=== PATIENT | female | born 1980 | race Caucasian/White ===

== ENCOUNTER 2025-01-20 13:47 | Outpatient (AMB) | payer OTHER, SELFPAY ==
--- NOTE | 2025-01-20 14:05 | A.OFFPC_ITS ---
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 Allergies Seasonal Allergies Allergy (Verified 01/20/25 14:07) Runny nose, watery eyes, sinus issues Tobacco use date assessed: 01/20/25 Dental Screening Dental Screen Date: 01/20/25 Did you have a dental visit in the last 12 months?: Yes Did you have a dental problem in the last 6 months where you did not have access to dental care?: No Was dental information given to patient?: Patient has dentist HPI HPI Comments History of Present Illness Details This is a 44-year-old female with a past medical history of hepatic steatosis, prediabetes, obesity, sciatica, insomnia and seasonal allergies presenting to establish care. Patient reports having a physical exam less than a year ago and last labs approximately 1 year ago. Transfer records pending. Sciatica-prescribed gabapentin 400 mg at night. This helps her to sleep and remain comfortable. She also takes melatonin 3 mg nightly for insomnia. Upon further questioning she endorses being told that she snores every night, non restorative sleep, daytime somnolence and waking up in the morning with headache sometimes. She goes to bed around 9:30-10 p.m. and wakes up at 05:30 a.m. on the week days and on the weekend 08:30am. She only drinks alcohol occasionally. She does not require medications to treat allergy symptoms that she says are seasonal. No frequent sinus infections. She has never had a sleep study. Her BMI is 45.6 kg/m2. She reports that she was diagnosed with hepatic steatosis, but when I questioned about this further she said this was only because her liver function tests were elevated on her blood work. She has never had a liver ultrasound. She denies abdominal pain, nausea, vomiting, jaundice or unexplained weight loss. She believes she was screened for hepatitis. Prediabetes-unknown last hemoglobin A1c. Denies symptoms of hyperglycemia. Patient is turning 45 years old in March. Her paternal grandmother had colon cancer, but she adamantly declines colonoscopy. She will do Cologuard though she is aware this is not the recommended screening test given her family history. She denies blood in her stools, abdominal pain, diarrhea or any other stool changes. She needs to be referred to Gynecology for an annual exam. She is overdue. She had a mammogram done last year, and she was contacted to schedule the mammogram this year. She reports having a breast biopsy in 2023 which was benign. Patient has felt like she has had some fluid in her right ear intermittently over the past few months. No hearing loss or pain. No dizziness or headache. Patient says she is up-to-date with immunizations. ROS: Constitutional: No unexplained weight loss, fever, chills or night sweats. +fatigue and daytime somnolence. Eyes: No vision changes, blurry vision, double vision, eye pain, eye redness, eye discharge. ENT: No hearing loss, ear pain, sore throat, sinus pain. Respiratory: No shortness of breath, cough or sputum production. Cardiovascular: No chest pain, chest pressure or chest discomfort. No palpitations or pedal edema. Gastrointestinal: No anorexia, nausea, vomiting or diarrhea. No abdominal pain or blood in stool. Neurologic: No headache, dizziness, syncope, unilateral weakness, ataxia seizures or tremors Hematologic/Lymphatics: No bleeding or bruising. Skin: No rash Endocrine: No cold or heat intolerance. No polyuria or polydipsia. Psychiatric: No depression or anxiety. No SI/HI. Physical exam: Constitutional: Alert, in no distress. Head: Normocephalic. Eyes: Pupils are equal, round and reactive to light. Extraocular muscles intact. Ear, Nose and Throat: Canals clear. TMs normal. Normal nasal mucosa. No nasal discharge. No oral lesions. Neck: Supple, Full range of motion. No lymphadenopathy. No palpable thyroid mas ses. Respiratory: Clear to auscultation. Cardiovascular: S1 S2 regular. No murmurs. Gastrointestinal: Abdomen soft, non-tender, non-distended. Normal bowel sounds. No palpable masses. Neurologic: No focal neurological deficits. Symmetric patellar reflexes. Moves all extremities spontaneously. Sensation intact bilaterally. Skin: No rashes Musculoskeletal: No gross deformities. Normal range of motion. Extremities: Warm and well perfused. No clubbing, cyanosis or edema. Intact peripheral pulses. Psychiatric: Normal mood and affect [facility] Medical History (Updated 01/21/25 @ 12:11 by ALNA Garrido) Daytime somnolence Non-restorative sleep Snoring Sciatica Seasonal allergies Obesity, Class III, BMI 40-49.9 (morbid obesity) Elevated LFTs Screening for cardiovascular condition Prediabetes Surgical History (Updated 01/21/25 @ 12:11 by ALAN Garrido) History of right breast biopsy Family History (Updated 01/20/25 @ 14:18 by Courtney Lira MA) Mother Stroke Heart attack Diabetes Blood clots in brain Father Diabetes Bipolar 1 disorder Kidney disease Kidney failure Social History (Updated 01/20/25 @ 14:12 by Courtney Lira MA) Housing: Apartment Housing Other:: with her fiance. 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 1. Little interest or pleasure in doing things: not at all 2. Feeling down, depressed, or hopeless: not at all 3. Trouble falling or staying asleep, or sleeping too much: not at all 4. Feeling tired or having little energy: nearly every day 5. Poor appetite or overeating: not at all 6. Feeling bad about yourself - or that you are a failure or have let yourself or your family down: not at all 7. Trouble concentrating on things, such as reading the newspaper or watching television: not at all 8. Moving or speaking so slowly that other people could have noticed. Or the opposite - being so fidgety or restless that you have been moving around a lot m ore than usual: not at all 9. Thoughts that you would be better off or of hurting yourself in some way: not at all Total score: 3 Depression Screening Interpretation: Negative Depression Screening Done: Yes 24701 - PHQ-9 Billing: Patient declined-do not bill Source: Developed by Drs. Christian Hi, Cher Jacobs, Homer Allen and colleagues, with an educational patti from [employer]. Thrive Questionnaire Date Thrive assessed: 01/20/25 I am a: Patient What is your living situation today?: I have a steady place to live Within the past 12 months, did the food you bought not last and you didn't have the money to get more?: Never true Within the past 12 months, did you worry whether your food would run out before you got money to buy more?: Never true Do you have trouble paying for medicines?: No Do you have trouble getting transportation to medical appointments?: No Do you have trouble paying your heating and electricity bill?: No Do you have trouble taking care of your child, family member or friend?: No Do you have trouble with day-to-day activities such as bathing, preparing meals, shopping, managing finances, etc.?: No Are you currently unemployed and looking for a job?: No Are you interested in more education?: No Please select the resources that you would like help with: None Currently or been in a relationship where the following occur: I choose not to answer THRIVE Score: 0 AUDIT C Alcohol Use Questionnaire (AUDIT-C) 1. How often do you have a drink containing alcohol?: Monthly or less 2. How many drinks containing alcohol do you have on a typical day when you are drinking?: 1 or 2 3. How often do you have six or more drinks on one occasion?: Never Total Score: 1 SCOTTIE-7 AMB Questionnaire SCOTTIE-7 Date SCOTTIE - 7 assessed: 01/20/25 Feeling nervous, anxious, or on edge: 0 = Not at all Not being able to stop or control worryin = Not at all Worrying too much about different things: 3 = Nearly every day Trouble relaxin = Not at all Being so restless that it is hard to sit still: 0 = Not at all Becoming easily annoyed or irritable: 3 = Nearly every day Feeling afraid as if something awful might happen: 0 = Not at all Total SCOTTIE-7 score (0-4 normal; 5-9 mild; 10-14 moderate; 15-21 severe): 6 Source: Developed by Drs. Christian Hi, Cher Jacobs, Homer Allen and colleagues, with an educational patti from [employer]. SCOTTIE-7 Assessment Billing SCOTTIE-7 Assessment Tool: SCOTTIE-7 Assessment 58569 ACT Questionnaire In the past 4 weeks, how much of the time did your asthma keep you from getting as much done at work, school or at home?: None of the time Score: 5 Physical exam (Primary Care) Vital Signs: Last Vital Signs Temp 98.6 F 01/20/25 14:13 Pulse 108 H 01/20/25 14:48 BP 118/88 01/20/25 14:13 Pulse Ox 98 01/20/25 14:13 Oxygen Delivery Method Room Air 01/20/25 14:13 BMI result Body Mass Index 45.6 Tobacco/Smoking Status: Tobacco use Status Tobacco use date assessed 01/20/25 01/20/25 14:19 Patient Tobacco Use Status Current everyday Tobacco 01/20/25 14:19 e-Cigarette/Vaping Use Never Used 01/20/25 14:19 PHQ-9: PHQ-9 Score PHQ-9: Total score 3 01/20/25 14:32 Depression Screening Interpretation: Negative Thrive Assessment: Date of Thrive Assessment Date Thrive assessed 01/20/25 01/20/25 14:19 Currently or been in a relationship where the following occur: I choose not to answer Coding Level of Care Code New Pt Level 4 (39653) Complex EM visit Add On G2211 Diagnoses Prediabetes R73.03 Screening for cardiovascular condition Z13.6 Elevated LFTs R79.89 Obesity, Class III, BMI 40-49.9 (morbid obesity) E66.01 Seasonal allergies J30.2 Sciatica M54.30 Snoring R06.83 Non-restorative sleep G47.8 Daytime somnolence R40.0 Additional Codes SCOTTIE-7 Assessment Billing - SCOTTIE-7 Assessment Tool: SCOTTIE-7 Assessment 37518 ([id number]) Assessment & Plan Assessment & Plan (1) Prediabetes: Code(s): R73.03 - Prediabetes Category: Medical Plan: Recommended low carbohydrate coat low sugar diet. Avoid alcohol. Exercise regularly to promote a healthy weight. Patient says generally she does not like to take medications so she is not interested in medications for prediabetes. Check labs. (2) Screening for cardiovascular condition: Code(s): Z13.6 - Encounter for screening for cardiovascular disorders Category: Medical (3) Elevated LFTs: Code(s): R79.89 - Other specified abnormal findings of blood chemistry Category: Medical Plan: Check liver function tests, lipid panel, ultrasound with elastography. Check hepatitis A,B and C serology. (4) Obesity, Class III, BMI 40-49.9 (morbid obesity): Code(s): E66.01 - Morbid (severe) obesity due to excess calories Category: Medical Plan: Patient is not interested in medical intervention. Lifestyle modifications reviewed in detail with the patient. Check TSH. (5) Seasonal allergies: Code(s): J30.2 - Other seasonal allergic rhinitis Category: Medical Plan: Patient does not take medications for this. Reassurance provided that there is no evidence of tympanic membrane effusion or infection on exam today. She may have some eustachian tube dysfunction and allergies contributing to the feeling of fluid in her ear. Recommended supportive care. (6) Sciatica: Code(s): M54.30 - Sciatica, unspecified side Category: Medical Plan: Stable. Continue gabapentin 400 mg at bedtime. (7) Snoring: Code(s): R06.83 - Snoring Category: Medical Plan: Patient with BMI of 45.6, snoring, non restorative sleep, daytime somnolence. Sleep study is medically necessary. Ordered. (8) Non-restorative sleep: Code(s): G47.8 - Other sleep disorders Category: Medical (9) Daytime somnolence: Code(s): R40.0 - Somnolence Category: Medical Plan Follow up in 1 year for annual physical exam. Orders: Orders Comprehensive Met. Panel 01/20/25 R73.03 - Prediabetes, R79.89 - Other specified abnormal findings of blood chemistry, Z13.6 - Encounter for screening for cardiovascular disorders Hemoglobin A1c 01/20/25 E11.9 - Type 2 diabetes mellitus without complications, R73.03 - Prediabetes, R79.89 - Other specified abnormal findings of blood chemistry, Z13.6 - Encounter for screening for cardiovascular disorders TSH reflex Free T4 01/20/25 R73.03 - Prediabetes, R79.89 - Other specified abnormal findings of blood chemistry, Z13.6 - Encounter for screening for cardiovascular disorders Hepatitis A IgM Today R79.89 - Other specified abnormal findings of blood chemistry RT home sleep study Today E66.01 - Morbid (severe) obesity due to excess calories, G47.8 - Other sleep disorders, R06.83 - Snoring, R40.0 - Somnolence Complete Blood Count no Diff 01/20/25 R73.03 - Prediabetes, R79.89 - Other specified abnormal findings of blood chemistry, Z13.6 - Encounter for screening for cardiovascular disorders Lipid Panel 01/20/25 E78.5 - Hyperlipidemia, unspecified, R73.03 - Prediabetes, R79.89 - Other specified abnormal findings of blood chemistry, Z13.6 - Encounter for screening for cardiovascular disorders US abdomen doty w elastography 01/20/25 R73.03 - Prediabetes, R79.89 - Other specified abnormal findings of blood chemistry, Z13.6 - Encounter for screening for cardiovascular disorders Hepatitis A,B,C Profile Today R7.89 - Other specified abnormal findings of blood chemistry Referrals ELEMENT SETTER Referral Z01.419 - Encounter for gynecological examination (general) (routine) without abnormal findings Cologuard Test Z12.11 - Encounter for screening for malignant neoplasm of colon
[2025-01-20 14:13] VITALS: BP 118/88; PULSE 112; TEMP 37; O2SAT 98; BMI 45.6
[2025-01-20 14:48] VITALS: PULSE 108
== END 2025-01-20 14:51 | disposition home or self-care (01) ==
LOC: HO.HMCFM 13:48
PROVIDERS: PCP Physician Assistant Medical; Visit Provider Physician Assistant Medical
DX: R73.03 Prediabetes (principal); Z13.6 Encounter for screening for cardiovascular disorders; E66.01 Morbid (severe) obesity due to excess calories; Z68.42 Body mass index [BMI] 45.0-49.9, adult; R79.89 Other specified abnormal findings of blood chemistry; J30.2 Other seasonal allergic rhinitis; M54.30 Sciatica, unspecified side; R06.83 Snoring; G47.8 Other sleep disorders; R40.0 Somnolence

== ENCOUNTER → 2025-01-20 13:47 | Outpatient (BNVA) | payer OTHER, SELFPAY | PROVIDERS: PCP Physician Assistant Medical; Visit Provider Physician Assistant Medical | DX: R73.03 Prediabetes (principal); R79.89 Other specified abnormal findings of blood chemistry; E66.01 Morbid (severe) obesity due to excess calories; Z68.42 Body mass index [BMI] 45.0-49.9, adult; J30.2 Other seasonal allergic rhinitis; M54.30 Sciatica, unspecified side; R06.83 Snoring; G47.8 Other sleep disorders; R40.0 Somnolence | CPT/HCPCS: 96127 ==

== ENCOUNTER 2025-02-28 08:55 | Outpatient (REF) | payer OTHER, SELFPAY ==
[2025-02-28 11:27] LABS: Hematocrit 43.6 % (37.0-47.0); Hemoglobin 14.1 g/dl (12.0-16.0); Mean Corpuscular HGB Conc 32.3 g/dl (31.0-35.0); Mean Corpuscular Hemoglobin 26.6 pg (27.0-33.0); Mean Corpuscular Volume 82.1 fL (80.0-98.0); Mean Platelet Volume 9.3 fL (9.4-12.3); Platelet Count 313 X10*3/uL (160-400); Red Blood Count 5.31 X10*6/uL (4.20-5.50); Red Cell Distribution Width 13.8 % (11.0-16.0); White Blood Count 6.9 X10*3/uL (4.8-10.8)
[2025-02-28 11:33] LABS: Estimated Average Glucose 128 mg/dL; Hemoglobin A1c % 6.1 % (<6.0)
[2025-02-28 12:31] LABS: HBS Num1 1.07 mIU/mL (0-7.99); HBc Num1 0.18 S/CO (0.00-0.79); HBsAGNum1 0.36 S/CO (0.00-0.99); Hepatitis A Antibody IgM 0.25 Index (0-0.79); Hepatitis B Core Antibody Nonreactive (Nonreactive); Hepatitis B Surface Antigen Negative (Negative); ~HepC Num1 0.17 S/CO (0.00-0.79); ~Hepatitis A Antibody IgM Nonreactive (Nonreactive); ~Hepatitis B Surface Antibody NONREACTIVE (Nonreactive); ~Hepatitis C Antibody Nonreactive (Nonreactive)
[2025-02-28 12:36] LABS: Hepatitis A Antibody IgM 0.24 Index (0-0.79); ~Hepatitis A Antibody IgM Nonreactive (Nonreactive)
[2025-02-28 13:09] LABS: TSH reflex Free T4 1.44 uIU/mL (0.32-4.0)
[2025-02-28 13:17] LABS: Anion Gap 9 (12-20)
[2025-02-28 13:22] LABS: Alanine Aminotransferase 34 U/L (0-31); Alkaline Phosphatase 93 U/L (39-117); Aspartate Amino Transferase 30 U/L (5-31); Bilirubin Total 0.5 mg/dL (0.0-1.0); Blood Urea Nitrogen 9 mg/dL (9-16); Calcium 9.1 mg/dL (8.4-10.2); Carbon Dioxide 25 mmol/L (22-29); Chloride 108 mmol/L (96-108); Cholesterol 199 mg/dL (<200); Estimated Glomerular Filt Rate > 60; Glucose Random 109 mg/dL (60-115); HDL Cholesterol 36 mg/dL (>40); LDL Cholesterol Calculated 136 mg/dL (<100); Potassium 4.2 mmol/L (3.3-5.1); Sodium 138 mmol/L (135-145); Total Protein 7.2 g/dL (6.5-8.0); Triglycerides 135 mg/dL (<150)
== END 2025-02-28 08:56 | disposition home or self-care (01) ==
LOC: HO.WFDLDS 08:55
PROVIDERS: Visit Provider Physician Assistant Medical
DX: Z13.6 Encounter for screening for cardiovascular disorders (principal); R79.89 Other specified abnormal findings of blood chemistry; E11.9 Type 2 diabetes mellitus without complications; E78.5 Hyperlipidemia, unspecified
CPT/HCPCS: 36415; 80053; 80061; 83036; 84443; 85027; 86704; 86706; 86709; 86803; 87340